=== PATIENT | male | born 1975 | race Caucasian/White ===

== ENCOUNTER 2018-08-25 09:59 | Emergency (ER) | payer OTHER ==
[2018-08-25 10:09] VITALS: BP 104/64
[2018-08-25] MEDS ORDERED: HYDROCODONE/APAP 5/325 TAB PO ONE (10:27)
[2018-08-25] MEDS ORDERED: IBUPROFEN 600 MG TAB PO ONE (10:27)
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
[2018-08-25] MEDS ORDERED: LET GEL TOPICAL 1 EA SYR TP ONE ×2 (10:31)
[2018-08-25] MEDS ORDERED: SKIN ADHESIVE (DERMABOND) 1 EACH TP ONE (10:32)
== END 2018-08-25 11:21 | disposition home or self-care (01) ==
PROC: 0HQ1XZZ Repair Face Skin, External Approach (ICD-10-PCS; principal; 2018-08-25)
DX: S01.81XA Laceration without foreign body of other part of head, initial encounter (principal); S43.004A Unspecified dislocation of right shoulder joint, initial encounter; V18.0XXA Pedal cycle driver injured in noncollision transport accident in nontraffic accident, initial encounter; Y93.55 Activity, bike riding; Y92.838 Other recreation area as the place of occurrence of the external cause
CPT/HCPCS: A4565